=== PATIENT | female | born 1990 | race African-American/Black ===

== ENCOUNTER 2019-03-10 10:50 | Inpatient (IN) ==
[2019-03-10] MEDS ORDERED: DUONEB (A & A) INH ONE (11:38)
[2019-03-10 12:03] LABS: BASO# 0.02 X1000 (0.0-0.2); BASO% 0.2 % (0.0-0.8); EOS# 0.16 X1000 (0.0-0.7); EOS% 1.5 % (0.0-10.0); HEMATOCRIT 32.9 % (37.0-47.0); HEMOGLOBIN 11.3 g/dL (12.0-16.0); IMM GRAN# 0.03 X1000 (0.0-0.04); IMM GRAN% 0.3 % (0.0-0.5); LYMPH# 1.79 X1000 (1.2-3.4); LYMPH% 16.5 % (20.5-51.1); MCH 27.4 PG (27-31); MCHC 34.3 g/dL (33-37); MCV 79.7 FL (81-99); MONO# 0.89 X1000 (0.11-0.59); MONO% 8.2 % (1.7-9.3); MPV 10.5 FL (7.4-10.4); NEUT# 7.97 X1000 (1.4-6.5); NEUT% 73.3 % (42.2-75.2); PLT 269 X1000 (130-400); RBC 4.13 XMIL (4.2-5.4); RDW 13.5 % (11.5-14.5); WBC 10.86 X1000 (4.8-10.8)
[2019-03-10 12:12] LABS: AGAP 14; ALBUMIN 3.8 g/dL (3.5-5.0); ALKALINE PHOSPHATASE 80 U/L (32-104); BUN 5 mg/dL (8-22); CALCIUM 9.4 mg/dL (8.8-10.2); CHLORIDE 103 mmol/L (98-107); COSMO 273; CREATININE 0.7 mg/dL (0.5-0.9); ESTIMATED GFR > 60; GLUCOSE 101 mg/dL (70-104); GOT 12 U/L (10-30); GPT 9 U/L (10-36); POTASSIUM 3.7 mmol/L (3.5-5.1); SODIUM 138 mmol/L (136-145); TCO2 21 mmol/L (25-35); TOTAL PROTEIN 7.1 g/dL (6.3-8.3)
--- NOTE | 2019-03-10 12:15 | EKG Report ---
Test Performed on : 03/10/2019 12:07:57 PM Test Reason : tachycardia Blood Pressure : / mmHG Vent. Rate : 092 BPM Atrial Rate : 092 BPM P-R Int : 150 ms QRS Dur : 084 ms QT Int : 374 ms P-R-T Axes : 044 021 015 degrees QTc Int : 462 ms Normal sinus rhythm. Normal ECG When compared with ECG of 04-JUL-2014 17:53, Criteria for Lateral infarct are no longer present T wave amplitude has increased in Lateral leads QT has lengthened Unconfirmed Result
--- NOTE | 2019-03-10 13:17 | PROVIDER DOCUMENTATION ---
This chart was entered by Breanna Hassan Scribe, acting as scribe for Dontae Olivares MD. HPI-Respiratory General - General Chief Complaint: Shortness of Breath Stated Complaint: FLU SX Time Seen by Provider: 03/10/19 11:25 Source: patient Allergies/Adverse Reactions: Patient Allergies Allergy/AdvReac Type Severity Reaction Status Date / Time No Known Allergies Allergy Verified 03/10/19 11:22 Home Medications: Home Medication List Medication Instructions Recorded Confirmed Last Taken Type Pnv No.95/Ferrous Fum/Folic AC 1 tab PO DAILY 10/29/18 03/10/19 03/09/19 History [ Caplet] enoxaparin 40 mg/0.4 mL 40 mg SUBCUT Q12H 03/05/19 03/10/19 03/10/19 History subcutaneous syringe - History of Present Illness-Resp Nature of Presenting Problem: 29yof presents to ED cc cough for 2 days and then awoke this morning with hoarseness and SOB. Pt reports she has hx of PE and is on Lovenox shots BID and denies missing any doses. Pt denies F/CP/C/OHARA/Dizziness. Pt reports she is 25weeks . G-3/P-2/A-0. Severity in ED: reports: mild, moderate Onset/Duration: reports: this morning Timing: reports: still present Cough Quality/Degree: reports: moderate Current Respiratory Medication Therapy: Initiated see nurses note Modifying Factors: worse with: coughing Associated Symptoms: reports: cough, shortness of breath, short of breath, wheezing. denies: fever/chills, headache, nasal congestion, sore throat Similar Symptoms Previously?: No Recently seen or treated by another doctor?: No Review of Systems - Adult - REVIEW OF SYSTEMS - ADULT Constitutional: reports: see HPI. denies: chills, fever, fatique Eyes: reports: no symptoms reported Ears, Nose, Mouth & Throat: reports: see HPI, hoarseness. denies: ear pain, sinus problem, throat pain Cardiovascular: reports: see HPI. denies: chest pain, palpitations Respiratory: reports: see HPI, cough, shortness of breath, wheezing Gastrointestinal: reports: no symptoms reported Genitourinary: reports: no symptoms reported Musculoskeletal: reports: no symptoms reported Integumentary: reports: no symptoms reported Neurological: reports: see HPI. denies: dizziness/vertigo, headache/migraines Psychiatric: reports: no symptoms reported Endocrine: reports: no symptoms reported Hematologic/Lymphatic: reports: no symptoms reported Allergic/Immunologic: reports: no symptoms reported All Other Systems: Reviewed and Negative Past History - Adult - PAST MEDICAL HISTORY-ADULT Review of Records: reports: Nursing Assessment Review, Medications Reviewed, Social history reviewed & non-contributory. Major Childhood Illnesses: reports: denies history Cardiovascular: reports: denies history Respiratory: reports: other (pe following , pt not anticoagulated now) Gastrointestinal: reports: denies history Obstetrical/Gynecological: reports: denies history Genitourinary: reports: denies history Musculoskeletal: reports: denies history Neurological: reports: headaches/migraines Endocrine/Immune: reports: denies history Other Conditions: reports: denies history - PRIOR SURGERIES/PROCEDURES Surgical/Procedure History: reports: - PRIOR HOSPITALIZATIONS Prior Hospitalizations: reports: none - IMMUNIZATION STATUS Childhood Immunizations: UTD, See Nurse Assessment Flu Vaccine: See Nurse Assessment - FAMILY HISTORY Family History: reviewed, not pertinent - SOCIAL HISTORY Smoking: denies Physical Exam-General - PHYSICAL EXAM-ADULT Initial Vital Signs Reviewed: Yes - CONSTITUTIONAL General Appearance: appears well, alert. negative: anxious, combative - EYES Eyes: PERRL/EOMI, pink conjunctivae. negative: photophobia - HEAD, EARS, NOSE, MOUTH & THROAT HENMT: normocephalic/atraumatic, moist mucous membranes. negative: angioedema - RESPIRATORY Respiratory: chest non-tender, normal breath sounds, rhonchi, wheezing. negat jermaine: crackles, rales - CARDIOVASCULAR Cardiovascular: normal peripheral pulses, no edema, tachycardia. negative: regular rate, rhythm, bradycardia - GASTROINTESTINAL (ABDOMEN) Abdominal Exam: normal bowel sounds, non tender, other ( abdomen). negative: rebound - MUSCULOSKELETAL Extremity: normal range of motion, normal inspection. negative: deformity, swelling - SKIN Integumentary: normal color. negative: diaphoresis, ecchymosis, jaundice, swelling, tenderness - PSYCHIATRIC Psych/Mental Status: normal mood/affect, oriented x 3. negative: anxious, disheveled Progress - PLAN OF CARE/RESULTS Progress/Plan/Lab Results: Vital Signs - 8 hr 03/10/19 10:52 03/10/19 12:23 Temperature 97.6 F Pulse Rate 95 H 87 Respiratory Rate 18 20 Blood Pressure 156/112 O2 Sat by Pulse Oximetry 100 98 Laboratory Results - last 24 hr 03/10/19 03/10/19 03/10/19 11:43 11:43 11:43 WBC 10.86 H RBC 4.13 L Hgb 11.3 L Hct 32.9 L MCV 79.7 L MCH 27.4 MCHC 34.3 RDW Std Deviation 13.5 Plt Count 269 MPV 10.5 H Immature Gran % (Auto) 0.3 Neut % (Auto) 73.3 Lymph % (Auto) 16.5 L [place] % (Auto) 8.2 Eos % (Auto) 1.5 Baso % (Auto) 0.2 Immature Gran # (Auto) 0.03 Neut # (Auto) 7.97 H Lymph # (Auto) 1.79 [place] # (Auto) 0.89 H Eos # (Auto) 0.16 Baso # (Auto) 0.02 D-Dimer, Quantitative 3.65 H Sodium 138 Potassium 3.7 Chloride 103 Carbon Dioxide 21 L Anion Gap 14 BUN 5 L Creatinine 0.7 Estimated GFR/1.73 m2 > 60 BUN/Creatinine Ratio 7 Glucose 101 Calculated Osmolality 273 Calcium 9.4 Total Bilirubin 0.20 AST 12 ALT 9 L Alkaline Phosphatase 80 Total Protein 7.1 Albumin 3.8 Globulin 3.0 Albumin/Globulin Ratio 1.0 Orders Category Date Time Status CBC WITH ELECTRONIC DIFF [HEME] Stat Lab 03/10/19 11:43 Completed COMPREHENSIVE METABOLIC PANEL [CHEM] Stat Lab 03/10/19 11:43 Completed D-DIMER [COAG] Stat Lab 03/10/19 11:43 Completed Albuterol 2.5MG/Ipratrop 0.5MG [Duoneb (A & A)] Med 03/10/19 11:38 Discontinued 3 ml INH NOW ONE Aerosol Treatments Routine Oth 03/10/19 11:38 Active Aerosol Treatments Stat Oth 03/10/19 11:38 Active Peak Flow Stat Oth 03/10/19 11:37 Active EKG [EKG] Stat Ther 03/10/19 11:36 Draft Result Diagrams: 03/10/19 11:43 03/10/19 11:43 - EKG 1 Time of EKG reading by physician:: 12:27 EKG Read and Signed by:: Dontae Olivares EKG Interpretation (*Must complete 3 of following elements*): Normal Rate: 92 Rhythm: nsr QRS: normal NM Interval: normal - CONSULTS/PCP/HOSPITALIST Notification #1 *Consult/PCP/Hospitalist*: Dr. Li Time Discussed: 13:16 Consult Disposition: Admit (accepted pt) Departure - Departure Date of Disposition Decision: 03/10/19 Time of Disposition Decision: 13:16 DIAGNOSIS: History of pulmonary embolus (PE) Disposition: ADMITTED INPATIENT 09 Certified Medical Emergency: Emergent Condition: Stable Additional Instructions: ED Follow Up Instructions: You have been treated by a care provider in the Emergency Department. These instructions are being provided to you so you can have an understanding of how to care for yourself upon discharge. Upon discharge from the Emergency Department, you are responsible for making arrangements for follow-up care by a physician of your choice. Take all prescribed medications as directed. Return to the Emergency Department immediately for any new or worsening symptoms. You may call the Physician Referral phone number at [phone] to obtain a list of Physicians who are taking new patients. Referrals and Follow-Ups: None,PCP [Primary Care Provider] - - Critical Care Note This patient required my direct & personal management of CC.: No Attestation - Physician/ URI Attestation Patient care was provided by Advanced Practice Provider:: No The physician spent face to face time with patient:: Yes Advanced Practice Provider documentation review:: Supervising physician onsite and consulted in the evaluation and care of this patient. The physician did have a face to face encounter with the patient. This chart was documented by the indicated scribe, (Breanna Hassan Scribe) and accurately reflects the services I performed and decisions made by me, Dontae Olivares MD, as attested by the provider's signature.
--- NOTE | 2019-03-10 15:29 | Vascular Study Report ---
EXAM: Venous U/S Bilateral Legs INDICATION: HX PTE TECHNIQUE: COMPARISON: None. FINDINGS: There is no discrete wong scale filling defect and there is normal Doppler flow, compressibility, and augmentation involving the deep venous systems of the right and left lower extremities. The great saphenous veins also appear to be patent bilaterally. IMPRESSION: No evidence of DVT. Electronically signed by Martinez Guidry 03/10/2019 3:26 PM
[2019-03-10] MEDS ORDERED: FLU VACCINE IM ONE (15:33)
[2019-03-10] MEDS: LOVENOX SUBQ SCH (17:10)
--- NOTE | 2019-03-10 17:23 | Diag Imaging Result Doc PS360 ---
EXAM: CHEST-PORTABLE INDICATION: Dyspnea TECHNIQUE: One view COMPARISON: 04/24/2016 FINDINGS: The lungs are grossly clear. There is no discrete pleural fluid collection or pneumothorax. The cardiomediastinal silhouette and central vasculature are grossly unremarkable. IMPRESSION: No evidence of acute pathology by plain radiograph. Electronically signed by Martinez Guidry 03/10/2019 5:21 PM
--- NOTE | 2019-03-10 17:25 | HISTORY AND PHYSICAL ---
ADDENDUM: The patient was seen by me [id number], and I fully agree with the assessment and plan of nurse practitioner, Valeria Burrows. This is a 29-year-old female who is having and has elevated D-dimer of 3.65. She presented to the emergency department with dyspnea, and therefore was admitted to the hospital for further care since there is concern that she might be having a pulmonary embolism. She does have history of PE in the past, but currently, we cannot get CT angiogram of the pulmonary arteries done because of . We did obtain venous Doppler ultrasound of the lower extremities that was negative for any deep vein thrombosis. We will initiate her on Lovenox 1 mg/kg subcutaneously every 12 hours and schedule her to have a V/Q scan on Tuesday morning. She was taking Lovenox only 40 mg subcutaneously twice daily prior to coming to the hospital. Further recommendations will be given as per outcome of these measures and after [facility] consultation is done. cc: Karla Li MD
--- NOTE | 2019-03-10 17:37 | HISTORY AND PHYSICAL ---
SERVICE DELIVERY SUPERVISOR: Dr. Dyson. CHIEF COMPLAINT: Shortness of breath. HISTORY OF PRESENT ILLNESS: Ms. Yates is a 29-year-old female who states that she is currently 26 weeks . She woke up this morning and could not catch her breath. She also noticed that she was unable to speak and was having severe hoarseness. She says she has been having a cough for a couple days now. She denies any fever or chills. States she has been having some pain in her chest when she takes a deep breath. She expresses this pain as a sharp pain and is only when she takes a deep breath. She is lying in the ER stretcher. She is somewhat short of breath at this time. She is 99% on room air. She does have a past medical history of pulmonary embolism from 2012. She is on home medications for her pulmonary embolism however since she is become they have swapped her to Lovenox 40 mg subcu b.i.d. She has been taking her Lovenox twice a day as prescribed. The patient does not have any complaints of any pain in her legs or any other pertinent symptoms at this time. PAST MEDICAL HISTORY: PE in 2013, sickle cell trait. PAST SURGICAL HISTORY: section x2 and cholecystectomy. SOCIAL HISTORY: Patient lives in [place]. She lives with her mother and her 2 children. She denies any smoking, alcohol or illicit drug use. She is employed at [employer]. FAMILY HISTORY: Her mother has hypertension, [place], hyperlipidemia and asthma. She has a grandmother that has sickle cell disease. ALLERGIES: No known drug allergies. MEDICATIONS: Lovenox 40 mg subcu b.i.d., daily vitamin. LABS AND DIAGNOSTICS: White blood cell count 10.86, red blood cell count 4.3, hemoglobin 11.3, hematocrit 32.9, MCV 79.7, MCH 27.4, MCHC 34.3, RDW 13.5, platelet count 269,000, D-dimer 3.65. Sodium 138, potassium 3.7, chloride 103, carbon dioxide 21, BUN 5, creatinine 0.7, estimated GFR is greater than 60, glucose 101, calcium 9.4, total bilirubin 0.2, AST is 12, ALT is 9, alkaline phosphatase is 80. Venous Doppler study shows no evidence of DVT. REVIEW OF SYSTEMS: The patient is negative for fever, chills, flu like symptoms or weight change. She is positive for cough, negative for congestion, rhinorrhea, headaches, vision changes, positive for hoarseness, negative for dizziness, negative for neck pain, negative for stiffness, negative for excessive thirst, negative for urination, negative for intolerance to heat or cold, negative for palpitations, positive for chest pain, negative for orthopnea, negative for lower leg edema, positive for cough, negative for sputum, negative for pleurisy, positive for dyspnea, positive for shortness of breath, negative for hemoptysis, negative for nausea, negative for vomiting, negative for melena, negative for hematemesis, negative for diarrhea , negative for constipation, negative for dysuria, negative for hesitancy, negative for frequency, negative for urgency, negative for hematuria, negative for incontinence, negative for joint pain, weakness, muscle aches, negative for dizziness, tremors, sensory motor deficits, vertigo, numbness or memory loss, negative for skin rash or lesions. PHYSICAL EXAMINATION: VITAL SIGNS: Temperature 98 degrees, pulse rate 95, respiratory rate 24, blood pressure 124/61, O2 saturation 100% on room air, weight 260 pounds, height 5 feet 9. GENERAL: This is a 29-year-old female. She is well nourished, well developed. She is in somewhat mild distress at this time. HEENT: Atraumatic, normocephalic. Pupils equal, round, reactive to light care. The sclerae is anicteric. Mucous membranes are moist. NECK: Supple. No lymphadenopathy. Trachea is midline. No JVD. No thyromegaly. No bruits. CARDIOVASCULAR: Regular rate and rhythm. No murmurs, gallops, or rubs appreciated. RESPIRATORY: Lung sounds. There is wheezing noted to the upper lobes, lower lobes are diminished. Respirations are somewhat mildly labored. There is no accessory muscle usage. ABDOMEN: Mildly distended. Bowel sounds are present x4. Is nontender. NEURO: Cranial nerves 2-12 are intact. The patient is awake, alert, oriented. MUSCULOSKELETAL: Full distal strength noted. No abnormalities, no deformities. EXTREMITIES: No clubbing, no cyanosis, no edema. DP and PT pulses are present and palpable. SKIN: Warm, dry, intact, no rash, no bruises, no diaphoresis. ASSESSMENT AND PLAN: 1. Dyspnea. We are going to admit this patient to the medical floor, place her on monitor worker. We are going to get a chest x-ray on the patient, order O2 per protocol for O2 saturation less than 92%. Have ordered a V/Q lung scan. We started her on Lovenox 1 mg/kg subcu b.i.d. We are going to rule her out for PE. She does have a positive D-dimer and she has had a history of pulmonary embolism in the past. 2. Past medical history of pulmonary embolism. We started her on Lovenox 1 mg/kg subcu b.i.d. and we are going to get V/Q lung scan to rule this out. She does have positive D-dimer. 3. . Patient is 26 weeks . We have consulted Dr. Felipe to see this patient. Patient does not have any problems with her at this time. We will just have him consult on her to see her while she is in the hospital. We will continue her vitamins. PLAN: We have admitted her to the medical floor. We put her on monitor worker, we started her on regular diet. We have started her on her Lovenox 1 mg/kg subcu b.i.d. We are going to get a V/Q lung scan to see if she actually has PE. Her D-dimer was positive but her ultrasound of her legs was negative. We are going to get a chest x-ray to rule her out for anything in the lung region. All other further recommendations pending hospital course and lab data. Dictated by YESICA Whitehead for Karla Li MD cc: Angie Dyson DO MTDChapin
--- NOTE | 2019-03-10 18:51 | Diag Imaging Result Doc PS360 ---
EXAM: CT ANGIOGRM PULMONARY ARTERIES INDICATION: r/o pe TECHNIQUE: This exam was performed using automated exposure control, adjustment of mA or kV according to patient size, and/or use of iterative reconstruction technique. Thin section axial images and 3-D MIPS were obtained. COMPARISON: 07/04/2014 FINDINGS: There is no evidence of pulmonary embolism. There is no evidence of aortic dissection or aneurysm. There is mild subsegmental atelectasis at both lung bases. The lungs are grossly clear, otherwise. There is no significant pleural fluid collection and no pneumothorax. There is no cardiomegaly. There are calcified mediastinal lymph nodes and right hilar lymph nodes indicating prior granulomatous disease. There is no significant lymphadenopathy, otherwise. Limited views of the upper abdomen are essentially unremarkable. IMPRESSION: 1.Minimal bibasilar subsegmental atelectasis. 2.No evidence of pulmonary embolism or other definite acute pathology, otherwise. Electronically signed by Martinez Guidry 03/10/2019 6:48 PM
--- NOTE | 2019-03-10 18:52 | CONSULTATION ---
DATE OF CONSULTATION: 03/10/2019 Ms Miner is a 29-year-old G3, P2-0-0-2, who presents today to the ER with shortness of breath and loss of her voice. She states that she has been coughing for the past couple of days and woke up this morning with hoarseness. She explains to me that she has trouble breathing when she is coughing but not when she is sitting there and breathing normally. She does have a history of a PE. She has been taking Lovenox 40 mg twice a day but does state that she saw Dr. Kat in this and thinks she was going to have her dose increased. She denies any chest pain, headache, dizziness today. MEDICAL HISTORY: History of PE. She has sickle cell trait. She is rubella nonimmune status. SURGICAL HISTORY: She has had delivery x2 and a cholecystectomy. MEDICINE: She takes Lovenox 40 mg b.i.d. and vitamin. ALLERGIES: She has NKDA. SOCIAL HISTORY: She has 2 children at home. She is single but dating, father of this baby is involved. She denies alcohol, tobacco and drugs. GYNECOLOGIC HISTORY: She denies any history of STDs. OBSTETRIC HISTORY: She has 1st delivered at 40 weeks, weight 8 pounds, delivery. Second delivered at 39 weeks with a 7 pound baby, repeat C- section. She did have a PE during that . REVIEW OF SYSTEMS: Positive for shortness of breath with coughing, hoarseness, with lower pelvic pain she has had for several weeks. Negative for contractions, shortness of breath without coughing, chest pain, loss of fluid, vaginal bleeding, abnormal discharge and review of 11 systems. Vitals: Within normal limits. Most recent blood pressure is 124/61. She did have an initial that was elevated. General Appearance: No acute distress. Extraocular motions are intact. Chest: Clear to auscultation bilaterally. Heart: Regular rate and rhythm. Abdomen: Soft and gravid. Appears stated gestational age. Lower extremities are without edema. No tenderness to palpation. ASSESSMENT AND PLAN: This is a 29-year-old G3, P2-0-0-2 at 25 weeks by last menstrual period, who presents with hoarseness and cough, difficulty breathing during coughing and a possible pulmonary embolism. She has had negative EKG. Chest x-ray is pending. RECOMMENDATIONS: Either CT with PE protocol or V/Q scan depending on the radiology preference. Recommend CT if all else is equal. Lovenox - agree with dosing on that. Would do Doptones daily for baby's heart rate and continue her vitamin. Thank you for the opportunity to participate in the care of this patient. cc: Selvin Felipe, DO [place]
[2019-03-11] MEDS: LOVENOX SUBQ SCH (05:37)
--- NOTE | 2019-03-11 07:22 | OB/GYN PROGRESS NOTE ---
Progress Note OB - . Patient Problems: Current Active Problems Problem Status Onset History of pulmonary embolism Acute OB Progress Note: Vital Signs - 24 hr 03/10/19 10:52 03/10/19 12:23 03/10/19 14:33 Temperature 97.6 F Pulse Rate 95 H 87 92 H Respiratory Rate 18 20 19 Blood Pressure 156/112 124/74 O2 Sat by Pulse Oximetry 100 98 99 03/10/19 14:58 03/10/19 16:11 03/10/19 18:00 Temperature 98.0 F Pulse Rate 95 H 102 H Respiratory Rate 24 Blood Pressure 124/61 O2 Sat by Pulse Oximetry 100 98 03/10/19 20:31 03/10/19 20:45 03/11/19 00:47 Temperature 98.0 F 97.5 F L Pulse Rate 93 H 81 Respiratory Rate 19 18 Blood Pressure 110/55 100/45 O2 Sat by Pulse Oximetry 98 98 98 03/11/19 04:27 Temperature 97.8 F Pulse Rate 89 Respiratory Rate 17 Blood Pressure 112/64 O2 Sat by Pulse Oximetry 99 Laboratory Results - last 24 hr 03/10/19 03/10/19 03/10/19 11:43 11:43 11:43 WBC 10.86 H RBC 4.13 L Hgb 11.3 L Hct 32.9 L MCV 79.7 L MCH 27.4 MCHC 34.3 RDW Std Deviation 13.5 Plt Count 269 MPV 10.5 H Immature Gran % (Auto) 0.3 Neut % (Auto) 73.3 Lymph % (Auto) 16.5 L [place] % (Auto) 8.2 Eos % (Auto) 1.5 Baso % (Auto) 0.2 Immature Gran # (Auto) 0.03 Neut # (Auto) 7.97 H Lymph # (Auto) 1.79 [place] # (Auto) 0.89 H Eos # (Auto) 0.16 Baso # (Auto) 0.02 D-Dimer, Quantitative 3.65 H Sodium 138 Potassium 3.7 Chloride 103 Carbon Dioxide 21 L Anion Gap 14 BUN 5 L Creatinine 0.7 Estimated GFR/1.73 m2 > 60 BUN/Creatinine Ratio 7 Glucose 101 Calculated Osmolality 273 Calcium 9.4 Total Bilirubin 0.20 AST 12 ALT 9 L Alkaline Phosphatase 80 Total Protein 7.1 Albumin 3.8 Globulin 3.0 Albumin/Globulin Ratio 1.0 29 yo at 26w4d with SOB, cough, Hx PE in 2013 Patient seen and examined. States SOB has improved since yesterday. She denies any chest pain, fever, nausea, vomiting, sputum production. She denies any contractions, VB, LOF. She endorses movement. CTA negative for PE. She has a follow-up on appointment with SATHYA on 03/[address] an appointment [address] Dr[address] Dyson on 03/30. EXAM: CT ANGIOGRM PULMONARY ARTERIES INDICATION: r/o pe TECHNIQUE: This exam was performed using automated exposure control, adjustment of mA or kV according to patient size, and/or use of iterative reconstruction technique. Thin section axial images and 3-D MIPS were obtained. COMPARISON: 07/04/2014 FINDINGS: There is no evidence of pulmonary embolism. There is no evidence of aortic dissection or aneurysm. There is mild subsegmental atelectasis at both lung bases. The lungs are grossly clear, otherwise. There is no significant pleural fluid collection and no pneumothorax. There is no cardiomegaly. There are calcified mediastinal lymph nodes and right hilar lymph nodes indicating prior granulomatous disease. There is no significant lymphadenopathy, otherwise. Limited views of the upper abdomen are essentially unremarkable. IMPRESSION: 1.Minimal bibasilar subsegmental atelectasis. 2.No evidence of pulmonary embolism or other definite acute pathology, otherwise. Physical Exam-General - PHYSICAL EXAM-ADULT Initial Vital Signs Reviewed: Yes - CONSTITUTIONAL General Appearance: appears well, alert, no apparent distress - HEAD, EARS, NOSE, MOUTH & THROAT HENMT: normocephalic/atraumatic - RESPIRATORY Respiratory: no respiratory distress, wheezing - CARDIOVASCULAR Cardiovascular: regular rate, rhythm - GASTROINTESTINAL (ABDOMEN) Abdominal Exam: normal bowel sounds, non tender, soft, other (gravid) - MUSCULOSKELETAL Extremity: normal range of motion, non-tender, no pedal edema - PSYCHIATRIC Psych/Mental Status: normal mood/affect Assessment/Plan - Assessment/Plan Assessment: 29 yo at 26w4d with SOB, cough, Hx PE in 2012 1. HD stable, afebrile, VSS 2. CTA negative for PE 3. On lovenox 1mg/kg BID for Hx PE 4. dopplers Qday 5. SOB/Cough/sore throat likely viral, treat symptoms
[2019-03-11] MEDS ORDERED: PRECARE PO SCH (09:00)
[2019-03-11 11:42] VITALS: BP 130/66
--- NOTE | 2019-03-11 12:38 | DISCHARGE SUMMARY ---
ADMISSION DATE: 03/10/2019 DISCHARGE DATE: 03/11/2019 DISCHARGE DIAGNOSES: 1. Dyspnea that appears to be multifactorial. 2. History of pulmonary embolism with negative CT angiogram of the pulmonary arteries showing no acute pulmonary embolism at this time. 3. A 26-week intrauterine . HOSPITAL COURSE: Ms. Yates is a 29-year-old female who presented to the emergency department with complaint of having shortness of breath. She stated that she was having breathing issues, and it appeared similar to the past when she had pulmonary embolism in 2012. She was having 99% pulse oximetry on room air, but because of her history, we obtained D-dimer, which was positive, and after that, we obtained AMBULATORY NURSE consultation, who recommended to go ahead and have pulmonary CT angiogram done. Pulmonary CT angiogram was done that was negative for any acute pulmonary thromboembolism. The patient had venous Doppler of lower extremities as well that was showing no evidence of deep vein thrombosis. Her condition has been stable, and therefore we are going to discharge her home today. DISCHARGE MEDICATIONS: 1. Enoxaparin 40 mg subcutaneously every 12 hours. 2. vitamin orally once daily. 3. Iron tablet orally once daily. FOLLOWUP: She will follow up with her AMBULATORY NURSE in about 1 week as scheduled. CONDITION: Stable. DISPOSITION: Home. cc: Karla Li MD
== END 2019-03-11 14:20 | disposition home or self-care (01) | DRG 833 ==
LOC: P.ED 10:50 → P.MEDSURG 14:05
PROVIDERS: ATTEND Internal Medicine

== ENCOUNTER 2019-05-31 04:37 | Inpatient (IN) ==
[2019-05-31] MEDS ORDERED: REGLAN PO ONE (04:39)
[2019-05-31] MEDS ORDERED: KEFZOL 1 GM/D5W 1 GM/50 ML IVPB IV PRN (04:39)
[2019-05-31] MEDS ORDERED: PEPCID PO ONE (04:39)
[2019-05-31] MEDS ORDERED: KEFZOL 2 GM/D5W 2 GM/50 ML IVPB IV ONE (05:29)
[2019-05-31] MEDS: LR 1,000 ML IV SCH ×4 (05:33→23:05)
[2019-05-31] MEDS ORDERED: BICITRA PO ONE (05:43)
[2019-05-31 05:46] LABS: BASO# 0.02 X1000 (0.0-0.2); BASO% 0.2 % (0.0-0.8); EOS# 0.11 X1000 (0.0-0.7); EOS% 1.1 % (0.0-10.0); HEMATOCRIT 31.9 % (37.0-47.0); HEMOGLOBIN 10.9 g/dL (12.0-16.0); IMM GRAN# 0.04 X1000 (0.0-0.04); IMM GRAN% 0.4 % (0.0-0.5); LYMPH# 2.45 X1000 (1.2-3.4); LYMPH% 24.9 % (20.5-51.1); MCH 27.7 PG (27-31); MCHC 34.2 g/dL (33-37); MONO# 0.73 X1000 (0.11-0.59); MONO% 7.4 % (1.7-9.3); MPV 10.6 FL (7.4-10.4); NEUT# 6.49 X1000 (1.4-6.5); PLT 236 X1000 (130-400); RBC 3.94 XMIL (4.2-5.4); RDW 13.7 % (11.5-14.5); WBC 9.84 X1000 (4.8-10.8)
[2019-05-31 05:57] LABS: URINE SOURCE VOIDED
[2019-05-31 06:01] LABS: BILIRUBIN URINE NEGATIVE (NEGATIVE); BLOOD URINE TRACE (NEGATIVE); COLOR YELLOW; GLUCOSE URINE NEGATIVE (NEGATIVE); KETONE URINE NEGATIVE (NEGATIVE); LEUKOCYTES URINE MODERATE (NEGATIVE); NITRITE URINE NEGATIVE (NEGATIVE); PH URINE 6.5; PROTEIN URINE NEGATIVE (NEGATIVE); SP GRAVITY URINE 1.014; TURBIDITY URINE HAZY (CLEAR); UROBILINOGEN URINE NORMAL (NORMAL)
[2019-05-31] MEDS ORDERED: FENTANYL ONE (06:18)
[2019-05-31] MEDS ORDERED: DURAMORPH ONE (06:20)
[2019-05-31 06:22] LABS: UR AMPHETAMINES QUAL NONE DETECTED (NONE DETECT); UR BARBITUATES QUAL NONE DETECTED (NONE DETECT); UR BENZODIAZEPIN QUAL NONE DETECTED (NONE DETECT); UR CANNABINOIDS QUAL NONE DETECTED (NONE DETECT); UR COCAINE QUAL NONE DETECTED (NONE DETECT); UR METHADONE QUAL NONE DETECTED (NONE DETECT); UR OPIATES QUAL NONE DETECTED (NONE DETECT); UR OXYCODONE QUAL NONE DETECTED (NONE DETECT); UR PCP QUAL NONE DETECTED (NONE DETECT)
[2019-05-31] MEDS ORDERED: DIPRIVAN 1% ONE (06:43)
--- NOTE | 2019-05-31 07:02 | HISTORY AND PHYSICAL ---
HISTORY OF PRESENT ILLNESS: Ms. Yates is a 29-year-old G3, P2, 0-0-2 at 38 weeks and 1 day who presents to Labor and Delivery for scheduled repeat delivery with bilateral tubal ligation. The patient reports good movement. Denies contractions, leakage of fluid or vaginal bleeding. PAST MEDICAL HISTORY: pulmonary embolism. Sickle cell trait. PAST SURGICAL HISTORY: delivery x2 and cholecystectomy. OBSTETRICAL HISTORY: G3, P2, 0-0-2. Two term deliveries, fist baby 8 pounds, second baby 7 pounds. The patient reports pulmonary embolism after second . IT SUPPORT MANAGER HISTORY: Denies STD exposure. Menarche at age 11. FAMILY HISTORY: Noncontributory. SOCIAL HISTORY: Denies tobacco, alcohol, or drug use. MEDICATIONS: 1. vitamins daily. 2. Heparin 60025 units subcutaneous q/12. ALLERGIES: No known drug allergies. PHYSICAL EXAMINATION: VITAL SIGNS: Temperature 98.1 degrees, pulse rate 86, respiration rate 16, blood pressure 141/75, and O2 sats 98% on room air. Weight 271 pounds. Height 5 feet 9 inches tall. Body mass index 40 kg/m2. GENERAL: No acute distress. Alert, awake, and oriented x3. CARDIOVASCULAR: Regular rate and rhythm. Positive S1, S2. RESPIRATORY: Clear to auscultation bilaterally. Negative rhonchi, rales, or wheezing. ABDOMEN: Gravid, nontender. Soft. EXTREMITIES: +1 edema. No calf tenderness. LABORATORY: WBC is 9.84, hemoglobin 10.9, hematocrit 31.9, and platelets 236,000. Rubella nonimmune. GBS negative. ASSESSMENT: Ms. Yates is a 29-year-old G3, P2, 0-0-2 at 38 weeks and 1 day who presents for scheduled repeat low-transverse delivery with bilateral tubal ligation. PLAN: 1. Admit to Labor and Delivery for repeat with bilateral tubal ligation. 2. Obtain routine labs for repeat delivery. 3. Continuous monitoring pre procedure. Obtain heart rate post spinal procedure. 4. IV antibiotics prior to incision for prophylaxis. 5. Patient counseled on risks, benefits, and alternatives to procedure. Risks, not limited to infection, bleeding, injury to surrounding organs including bowel, bladder, and ureters. Risks for sterilization include regret, failure, and ectopic . Alternatives for tubal ligation female sterilization include long-acting reversible contraceptive methods and vasectomy. The patient understands risk of procedure, and agrees to the above procedure. 6. We will resume Lovenox 40 mg daily 24 hours post procedure for a period of 6 weeks .
[2019-05-31] MEDS ORDERED: ZOFRAN ONE (07:23)
[2019-05-31] MEDS ORDERED: PITOCIN ONE (07:23)
[2019-05-31] MEDS ORDERED: MYLICON PO PRN (08:23)
[2019-05-31] MEDS ORDERED: BOOSTRIX VACCINE IM ONE (08:23)
[2019-05-31] MEDS ORDERED: DULCOLAX PR PRN (08:23)
[2019-05-31] MEDS ORDERED: AMBIEN PO PRN (08:23)
[2019-05-31] MEDS ORDERED: DEMEROL IM PRN (08:23)
[2019-05-31] MEDS ORDERED: PITOCIN IM PRN (08:23)
[2019-05-31] MEDS ORDERED: PITOCIN 20 UNITS/NS 20 UNITS/1,000 ML IV.SOLN IV ONE (08:23)
[2019-05-31] MEDS ORDERED: HYDROXYZINE IM PRN (08:23)
[2019-05-31] MEDS ORDERED: M-M-R II VACCINE SUBQ ONE (08:23)
[2019-05-31] MEDS ORDERED: ATARAX PO PRN (08:23)
[2019-05-31] MEDS ORDERED: PHENERGAN IM PRN (08:23)
[2019-05-31] MEDS ORDERED: DEMEROL PO PRN ×2 (08:23)
[2019-05-31] MEDS ORDERED: NARCAN INJ PRN (08:45)
[2019-05-31] MEDS ORDERED: ZOFRAN ODT PO PRN (08:45)
[2019-05-31] MEDS ORDERED: ZOFRAN IV PRN ×2 (08:45)
[2019-05-31] MEDS: OFIRMEV 1000 MG/ISOTONIC SOLN 1,000 MG/100 ML BOTTLE IV SCH ×3 (08:53→20:51)
[2019-05-31] MEDS: MYLICON PO SCH ×4 (09:33→20:51)
[2019-05-31] MEDS: BENADRYL IV PRN ×2 (09:34→23:02)
[2019-05-31] MEDS: PITOCIN 10 UNITS/NS 1,000 ML IV SCH ×2 (15:03→23:56)
[2019-05-31] MEDS ORDERED: OXYCODONE PO PRN (20:29)
[2019-05-31] MEDS: PERICOLACE PO SCH (21:59)
[2019-05-31] MEDS: OXY IR PO PRN (21:59)
[2019-06-01] MEDS: OXY IR PO PRN (02:36)
[2019-06-01] MEDS: OFIRMEV 1000 MG/ISOTONIC SOLN 1,000 MG/100 ML BOTTLE IV SCH (02:39)
[2019-06-01 05:38] LABS: BASO# 0.01 X1000 (0.0-0.2); BASO% 0.1 % (0.0-0.8); EOS# 0.13 X1000 (0.0-0.7); HEMATOCRIT 32.4 % (37.0-47.0); HEMOGLOBIN 10.9 g/dL (12.0-16.0); IMM GRAN# 0.04 X1000 (0.0-0.04); IMM GRAN% 0.3 % (0.0-0.5); LYMPH# 1.78 X1000 (1.2-3.4); LYMPH% 13.7 % (20.5-51.1); MCH 27.5 PG (27-31); MCHC 33.6 g/dL (33-37); MCV 81.6 FL (81-99); MONO# 0.76 X1000 (0.11-0.59); MONO% 5.8 % (1.7-9.3); MPV 10.5 FL (7.4-10.4); NEUT# 10.29 X1000 (1.4-6.5); NEUT% 79.1 % (42.2-75.2); PLT 211 X1000 (130-400); RBC 3.97 XMIL (4.2-5.4); RDW 13.9 % (11.5-14.5); WBC 13.01 X1000 (4.8-10.8)
--- NOTE | 2019-06-01 06:55 | OB/GYN PROGRESS NOTE ---
- Subjective Pt seen and examined. Currently w/o complaints. Pain well controlled. Tolerating diet, denies n/v. Denies flatus, BM and ambulation. Verma insitu. OB Physical Exam Vital Signs - 8 hr 06/01/19 00:07 06/01/19 04:00 Temperature 99.0 F 99.1 F Pulse Rate 76 82 Respiratory Rate 20 20 Blood Pressure 108/59 109/55 O2 Sat by Pulse Oximetry 95 98 - CONSTITUTIONAL General Appearance: appears well, alert, no apparent distress - RESPIRATORY Respiratory: lungs clear, normal breath sounds - CARDIOVASCULAR Cardiovascular: regular rate, rhythm - GASTROINTESTINAL (ABDOMEN) Abdominal Exam: soft, tenderness (appropriate). negative: guarding, rigid, rebound - MUSCULOSKELETAL Extremity: non-tender, no calf tenderness - SKIN Integumentary: normal color, normal turgor, warm/dry (Incision: c/d/i with matty insitu) - PSYCHIATRIC Psych/Mental Status: normal mood/affect, oriented x 3 Active Medications Generic Name Dose Route Start Last Admin Trade Name Freq PRN Reason Stop Dose Admin Bisacodyl 10 mg 05/31/19 08:23 Dulcolax MO PRN PRN gas unrelieved by Mylicon Diphenhydramine HCl 12.5 mg 05/31/19 08:45 05/31/19 23:02 Benadryl IV 06/01/19 08:44 12.5 mg Q6H PRN PRN Administration ITCHING IF ZOFRAN INEFFECTIVE Enoxaparin Sodium 40 mg 06/01/19 06:30 Lovenox SUBQ Q24H KINGA Hydroxyzine HCl 50 mg 05/31/19 08:23 Atarax PO Q3-4H PRN PRN Nausea Hydroxyzine HCl 50 mg 05/31/19 08:23 Hydroxyzine IM Q3-4H PRN PRN Nausea Lactated Ringer's 1,000 mls @ 125 mls/hr 05/31/19 04:45 05/31/19 23:05 Lr IV Not Given .Q8H KINGA Lactated Ringer's 1,000 mls @ 125 mls/hr 06/01/19 08:23 Lr IV .Q8H KINGA Ibuprofen 800 mg 05/31/19 08:23 Motrin PO Q8H PRN PRN Pain Meperidine HCl 50 mg 05/31/19 08:23 Demerol IM Q3H PRN PRN Pain Meperidine HCl 50 mg 05/31/19 08:23 Demerol PO Q4H PRN PRN Pain (1-6 on Pain Scale) Meperidine HCl 100 mg 05/31/19 08:23 Demerol PO Q4H PRN PRN Pain (7-10 on Pain Scale) Naloxone HCl 0.4 mg 05/31/19 08:45 Narcan INJ 06/01/19 08:44 DIRECTED PRN PRN Ondansetron HCl 4 mg 05/31/19 08:45 Zofran Odt PO 06/01/19 08:44 DIRECTED PRN PRN Ondansetron HCl 4 mg 05/31/19 08:45 Zofran IV 06/01/19 08:44 DIRECTED PRN PRN Ondansetron HCl 4 mg 05/31/19 08:45 05/31/19 16:00 Zofran IV 06/01/19 08:44 4 mg Q4-6H PRN PRN Administration Itching Oxycodone HCl 10 mg 05/31/19 20:39 06/01/19 02:36 Oxy Ir PO 10 mg Q4H PRN PRN Administration Pain Oxycodone/Acetaminophen 1 each 05/31/19 08:23 Percocet-10 PO Q3-4H PRN PRN Pain (7-10 on Pain Scale) Oxytocin 20 unit 05/31/19 08:23 Pitocin IM PRN PRN Severe bleeding Multivit/Folic Acid/Iron 1 each 06/01/19 09:00 Precare PO DAILY KINGA Promethazine HCl 25 mg 05/31/19 08:23 Phenergan IM Q3H PRN PRN Pain Senna/Docusate Sodium 1 each 05/31/19 21:00 05/31/19 21:59 Pericolace PO 1 each QHS KINGA Administration Simethicone 80 mg 05/31/19 09:00 05/31/19 20:51 Mylicon PO 80 mg PC + HS KINGA Administration Simethicone 80 mg 05/31/19 08:23 Mylicon PO PRN PRN GAS Zolpidem Tartrate 10 mg 05/31/19 08:23 Ambien PO HS PRN PRN Sleep Laboratory Results - last 24 hr 06/01/19 05:19 WBC 13.01 H RBC 3.97 L Hgb 10.9 L Hct 32.4 L MCV 81.6 MCH 27.5 MCHC 33.6 RDW Std Deviation 13.9 Plt Count 211 MPV 10.5 H Immature Gran % (Auto) 0.3 Neut % (Auto) 79.1 H Lymph % (Auto) 13.7 L [place] % (Auto) 5.8 Eos % (Auto) 1.0 Baso % (Auto) 0.1 Immature Gran # (Auto) 0.04 Neut # (Auto) 10.29 H Lymph # (Auto) 1.78 [place] # (Auto) 0.76 H Eos # (Auto) 0.13 Baso # (Auto) 0.01 OB Assessment & Plan (1) Status post delivery Status: Acute Plan: 29yo POD#1 s/p repeat CD with BTL with h/o PP PE -Hgb pending -advance diet as tolerated -OOB to ambulation -d/c verma -Countine routine PP care (2) History of pulmonary embolism Status: Acute Plan: -resume Lovenox 40mg SQ daily -continue until at least 6 weeks
[2019-06-01] MEDS: LOVENOX SUBQ SCH (07:27)
[2019-06-01] MEDS ORDERED: LR 1,000 ML IV SCH (08:23)
[2019-06-01] MEDS: PRECARE PO SCH (09:21)
[2019-06-01] MEDS: MYLICON PO SCH ×4 (09:21→20:41)
[2019-06-01] MEDS: PERCOCET-10 PO PRN ×2 (14:37→21:01)
--- NOTE | 2019-06-01 15:59 | OPERATIVE NOTE ---
PROCEDURE DATE: 05/31/2019 SURGEON: Dr. Angie Dyson PATIENT SITTER: Dr. Javy Bowman. PREOPERATIVE DIAGNOSES: 1. Intrauterine at 38 weeks and 1 day. 2. Previous section x2. 3. Multigravida, desires female sterilization. POSTOPERATIVE DIAGNOSES: 1. Intrauterine at 38 weeks and 1 day. 2. Previous section x2. 3. Multigravida, desires female sterilization. PROCEDURE PERFORMED: Repeat low transverse section with bilateral tubal ligation. ANESTHESIA: Spinal. ESTIMATED BLOOD LOSS: 600 mL COMPLICATIONS: None. DESCRIPTION OF PROCEDURE: The patient was taken to the OR where a time-out was performed to confirm correct patient and correct procedure. Spinal anesthesia was adequately established and prophylactic intravenous antibiotics were administered. The patient was then placed in a dorsal supine position with a left tilt of the hips. The patient was then prepped and draped in usual sterile fashion for a Pfannenstiel skin incision. The incision was then made in the skin with a surgical scalpel, and sharp dissection was carried out over subsequent layers of tissue including the fascia followed by the Bovie electrocautery for hemostasis. The fascia was incised at the midline, and the fascial incision was extended bilaterally using the Bovie electrocautery. The inferior edge of the fascial incision was grasped with Rhonda clamps, tented up, and the underlying rectus muscles were dissected off bluntly using the Bovie electrocautery. Attention was then turned to the superior edge which was grasped with 2 Rhonda clamps, tented up, and the underlying rectus muscles were dissected off bluntly using Bovie electrocautery. The rectus muscles were then divided at the midline. The peritoneum was identified, tented up with hemostats, up at its upper margin taking care to avoid the bladder and entered bluntly at its superior margin. The peritoneal incision was extended superiorly and inferiorly using Bovie electrocautery with good hemostasis with good visualization of the bladder. The bladder blade was inserted and the vesicouterine peritoneum was identified, grasped with smooth pickups and cut laterally to both sides using the Metzenbaum scissors. The bladder flap was then created using sharp dissection. The bladder blade was reinserted, and a transverse incision was made in the lower uterine segment using the scalpel. The uterine incision was extended bilaterally with blunt dissection. The amniotic sac was entered, and the amniotic fluid was noted to be clear. The surgeon's hand was placed into the uterine cavity. The head was identified, elevated into the abdomen, and delivered through the uterine incision with the assistance of fundal pressure. The infant was examined for nuchal cord. One nuchal cord was identified and reduced. The infant was then delivered with traction, and the assistance of fundal pressure. The 's oral and nasal passages were bulb suctioned. On delivery, the cord was clamped and cut. The infant was passed off the table to the waiting agency sales representative staff for further care. Cord blood was obtained for analysis and routine blood testing. The placenta delivered spontaneously via manual extraction intact with a three-vessel cord. Oxytocin was administered by IV infusion to enhance uterine contraction. The uterus was exteriorized, and cleared of all clots, and remaining products of conception. The uterine incision was reapproximated using 0 Monocryl suture in a running locked fashion. A second [id number] stitch was used to reinforce non-hemostatic areas. Good hemostasis was confirmed. The uterine incision had laps applied to reinforce hemostasis. Attention was then turned to the bilateral fallopian tubes after the identification of both fallopian tubes and fimbriated ends. A Darek clamp was used to grasp the right fallopian tube at the ampulla. The Bovie electrocautery was used to clear a hole in the mesial salpinx directly below the elevated portion of the fallopian tube, and the fallopian tube was suture ligated with 0 chromic at either end. The 2 portions of fallopian tubes between the suture were then excised using the Metzenbaum scissors and sent to Pathology. The identical procedure was performed on the other side, and hemostasis was noted bilaterally. The uterus was then placed into the abdomen, and the pericolic gutters were cleared of all clots. The fascia was reapproximated using 0 Vicryl absorbable suture in a running locked fashion. The subcutaneous fat was reapproximated using 2-0 plain in a running nonlocked fashion. The skin was reapproximated using matty. All needle, sponge, and instrument counts were noted to be correct x2 at the end of the procedure. The patient tolerated the procedure well, and was transferred to the recovery room in stable condition.
[2019-06-01] MEDS: PERICOLACE PO SCH (20:41)
[2019-06-01] MEDS: MOTRIN PO PRN (20:41)
[2019-06-02] MEDS: PERCOCET-10 PO PRN ×2 (05:25→08:51)
[2019-06-02] MEDS: MOTRIN PO PRN (05:25)
[2019-06-02] MEDS: LOVENOX SUBQ SCH (06:38)
--- NOTE | 2019-06-02 07:38 | DISCHARGE SUMMARY ---
ADMISSION DATE: 05/31/2019 DISCHARGE DATE: HISTORY OF PRESENT ILLNESS: The patient is a 29-year-old 3, para 2, at 38 weeks 1 day a week, who was admitted on May 31 for a scheduled repeat section with bilateral tubal ligation. PAST MEDICAL HISTORY: Remarkable for a pulmonary embolism and sickle cell trait. She had a section x2 and cholecystectomy. The patient had both babies at term. FAMILY HISTORY: Is noncontributory. SOCIAL HISTORY: She denied tobacco, alcohol, or drug use. MEDICATIONS: Prior to admission, vitamins and heparin. ALLERGIES: She has no known drug allergies. HOSPITAL COURSE: The procedure was done uneventfully and the patient tolerated the procedure well. Her postop course was totally benign. She remained well and afebrile. Her laboratory was remarkable for a hematocrit of 31.9, that was 32.4 on postop check. Her other lab work was essentially benign. Her postop course was again benign. She remained well and afebrile and was discharged home on her medication which included Lovenox 40 mg daily as well as Motrin and Percocet. DISCHARGE INSTRUCTIONS: She will have follow up with a private MD in approximately 2 weeks to check her incision. She verbalized understanding about discharge instructions and all questions were answered. She is to refrain from heavy lifting, intercourse and is to call if she had a fever, increased bleeding, abdominal pain, or any incisional difficulty.
[2019-06-02 07:44] VITALS: BP 129/71
[2019-06-02] MEDS: PRECARE PO SCH (09:57)
[2019-06-02] MEDS: MYLICON PO SCH (09:58)
== END 2019-06-02 13:20 | disposition home or self-care (01) | DRG 785 ==
LOC: LD 04:37
PROVIDERS: ADMIT Obstetrics & Gynecology; ATTEND Obstetrics & Gynecology